=== PATIENT | male | born 1960 | race Caucasian/White ===

== ENCOUNTER → 2018-06-04 | Day surgery (SDC) | payer OTHER ==
--- NOTE | 2018-06-05 15:12 | PATH ---
Cytology Non-Gynecological Report Patient Name: ALEKSEY GUTIÉRREZ [facility]. Rec. #: [id number] /Age/Gender: 1960 (Age: 57) / M Account: [id number] Location: RADIOLOGY INTER Taken: 06/04/2018 Received: 06/04/2018 Reported: 06/05/2018 Physicians: Dianelys Conteh M.D. Specimen(s) Received LEFT LOBE THYROID FNA Clinical History Left thyroid nodule, 4.28 x 2.57 x 2.96 cm Final Diagnosis THYROID, LEFT, FINE NEEDLE ASPIRATION: SATISFACTORY FOR EVALUATION. BETHESDA CLASS II: BENIGN. CYTOLOGIC FINDINGS ARE CONSISTENT WITH A BENIGN FOLLICULAR NODULE WITH POST-HEMORRHAGIC CHANGE. FOLLICULAR CELLS WITH FOCAL REACTIVE CHANGES IN A BACKGROUND OF ABUNDANT THIN COLLOID AND HEMOSIDERIN-LADEN MACROPHAGES. Electronically Signed Citlali Nix M.D. Gross Description Received are eight direct smears, four of which are air-dried and Diff-Quik stained, and four of which are alcohol fixed and Pap stained. Also received is 20 ml of bloody formalin from which one cellblock is prepared.
== END | disposition home or self-care (01) ==
LOC: JRADIR 08:49
PROVIDERS: ATTEND Family Medicine
PROC: 0G9G3ZX Drainage of Left Thyroid Gland Lobe, Percutaneous Approach, Diagnostic (ICD-10-PCS; principal; 2018-06-04)
DX: E04.1 Nontoxic single thyroid nodule (principal)
CPT/HCPCS: 76942; 88173; 88305-TC

== ENCOUNTER 2018-09-21 16:18 | Inpatient (IN) | payer OTHER ==
--- NOTE | 2018-09-21 16:36 | PDOC ---
Rapid Medical Evaluation Chief Complaint: Edema Time Seen by Provider: 09/21/18 16:31 Medical Evaluation: Allergies Allergy/AdvReac Type Severity Reaction Status Date / Time No Known Allergies Allergy Verified 04/30/18 10:25 Vital Signs Temp Pulse Resp BP Pulse Ox 98.3 F 96 H 16 128/69 100 09/21/18 16:27 09/21/18 16:27 09/21/18 16:27 09/21/18 16:27 09/21/18 16:27 09/21/18 16:31 I have performed a brief in-person evaluation of this patient. The patient presents with a chief complaint of: right leg swelling, edema and pain x 3 days. Denies injury of fall Pertinent physical exam findings: NAD unlabored breathing right lower extremity erythematous and pitting edema I have ordered the following: ultrasound The patient will proceed to the ED for further evaluation. Discharge Disposition - Diagnosis Leg pain - Discharge Dispostion Condition at time of disposition: Stable - Referrals - Patient Instructions - Post Discharge Activity
[2018-09-21 19:59] LABS: BASO % 0.9 % (0-2.0); EOS % 1.4 % (0-4.5); HEMATOCRIT 38.4 % (35.4-49); HEMOGLOBIN 13.7 GM/dL (11.7-16.9); LYMPH % 22.7 % (8-40); MCHC 35.6 g/dl (32.0-35.9); MEAN CELL VOLUME 84.4 fl (80-96); MONO % 9.6 % (3.8-10.2); NEUT % 65.4 % (42.8-82.8); PLATELET COUNT 259 K/MM3 (134-434); RBC 4.55 M/mm3 (4.00-5.60); WHITE BLOOD COUNT 10.5 K/mm3 (4.0-10.0)
--- NOTE | 2018-09-21 20:26 | PDOC ---
*Physical Exam - Vital Signs Last Vital Signs Temp Pulse Resp BP Pulse Ox 98.3 F 96 H 16 128/69 100 09/21/18 16:27 09/21/18 16:27 09/21/18 16:27 09/21/18 16:27 09/21/18 16:27 ED Treatment Course - LABORATORY CBC & Chemistry Diagram: 09/21/18 19:41 09/21/18 19:41 - ADDITIONAL ORDERS Additional order review: 09/21/18 19:41 RBC 4.55 MCV 84.4 MCHC 35.6 RDW 14.0 MPV 8.0 Neutrophils % 65.4 Lymphocytes % 22.7 Monocytes % 9.6 Eosinophils % 1.4 Basophils % 0.9 Medical Decision Making - Medical Decision Making 09/21/18 20:25 Patient seen by the advanced practice provider under my direct supervision. Ancillary testing reviewed as necessary. I agree with plan as outlined by the advanced practice provider. *DC/Admit/Observation/Transfer Diagnosis at time of Disposition: Leg pain - Discharge Dispostion Condition at time of disposition: Stable - Referrals Referrals: Iram Borjas MD [Primary Care Provider] - - Patient Instructions - Post Discharge Activity
[2018-09-21 20:29] LABS: ALBUMIN 3.8 g/dl (3.4-5.0); ALK PHOS 111 U/L (45-117); ANION GAP 9 MMOL/L (8-16); BILIRUBIN,TOTAL 0.4 mg/dL (0.2-1); BLOOD UREA NITROGEN 18 mg/dL (7-18); CALCIUM 8.9 mg/dL (8.5-10.1); CHLORIDE 103 mmol/L (98-107); CO2 25 mmol/L (21-32); GLUCOSE,RANDOM 100 mg/dL (74-106); SGOT/AST 24 U/L (15-37); SGPT/ALT 22 U/L (13-61); SODIUM 137 mmol/L (136-145); TOT PROT 7.3 g/dl (6.4-8.2)
[2018-09-21] MEDS ORDERED: VANCOMYCIN 1 GM in D5W (PRE-DOCKED) 1,000 MG/250 ML IVPB ONE (20:48)
[2018-09-21] MEDS ORDERED: PIPERACILLIN/TAZOBACTAM 4.5 GM VIAL IVPB ONE (20:48)
--- NOTE | 2018-09-21 20:49 | PDOC ---
History of Present Illness - General Chief Complaint: Edema Stated Complaint: RIGHT LEG REDNESS Time Seen by Provider: 09/21/18 16:31 History Source: Patient - History of Present Illness Initial Comments: 09/21/18 21:17 57-year-old male complaining of right lower extremity edema, right calf pain with increased redness for the last 2 days. Patient reports that he's been having difficulty walking since swelling started. Denies fevers/chills denies shortness of breath, chest pain, dizziness, diaphoresis, nausea, vomiting, abdominal pain. Patient has a past medical history of hypertension, , gout, hypercholesterolemia Past History - Past Medical History Allergies/Adverse Reactions: Allergies Allergy/AdvReac Type Severity Reaction Status Date / Time No Known Allergies Allergy Verified 04/30/18 10:25 Asthma: Yes Cardiac Disorders: No COPD: No HTN: Yes Hypercholesterolemia: Yes Other medical history: gout,ca.prostrate - Surgical History Cholecystectomy: No - Immunization History Immunization Up to Date: No - Suicide/Smoking/Psychosocial Hx Smoking History: Never smoked Have you smoked in the past 12 months: No Information on smoking cessation initiated: No Hx Alcohol Use: No Drug/Substance Use Hx: No Review of Systems - Review of Systems Able to Perform ROS?: Yes Is the patient limited Swazi proficient: No Constitutional: No: Symptoms Reported, See HPI, Chills, Diaphoresis, Fever, Loss of Appetite, Malaise, Night Sweats, Weakness, Weight Stable, Unintentional Wgt. Loss, Unexplained wgt Loss, Other Integumentary: Yes: Erythema (and edema), Other (right calf pain) *Physical Exam - Vital Signs Last Vital Signs Temp Pulse Resp BP Pulse Ox 98.3 F 96 H 16 128/69 100 09/21/18 16:27 09/21/18 16:27 09/21/18 16:27 09/21/18 16:27 09/21/18 16:27 - Physical Exam General Appearance: Yes: Appropriately Dressed Respiratory/Chest: positive: Lungs Clear, Normal Breath Sounds Cardiovascular: positive: Regular Rhythm, Regular Rate Gastrointestinal/Abdominal: positive: Normal Bowel Sounds Extremity: positive: Swelling, Erythema (no streaking, + pedal pulse bilaterally , + calf pain) Integumentary: positive: Normal Color, Dry, Warm Neurologic: positive: Fully Oriented, Alert, Normal Mood/Affect Moderate Sedation - Procedure Monitoring Vital Signs: Procedure Monitoring Vital Signs Temperature 98.3 F 09/21/18 16:27 Pulse Rate 96 H 09/21/18 16:27 Respiratory Rate 16 09/21/18 16:27 Blood Pressure 128/69 09/21/18 16:27 O2 Sat by Pulse Oximetry (%) 100 09/21/18 16:27 ED Treatment Course - LABORATORY CBC & Chemistry Diagram: 09/21/18 19:41 09/21/18 19:41 - ADDITIONAL ORDERS Additional order review: Laboratory Results 09/21/18 19:41 Sodium 137 Potassium 4.0 Chloride 103 Carbon Dioxide 25 Anion Gap 9 BUN 18 Creatinine 1.0 Creat Clearance w eGFR > 60 Random Glucose 100 Calcium 8.9 Total Bilirubin 0.4 AST 24 ALT 22 Alkaline Phosphatase 111 Total Protein 7.3 Albumin 3.8 09/21/18 19:41 RBC 4.55 MCV 84.4 MCHC 35.6 RDW 14.0 MPV 8.0 Neutrophils % 65.4 Lymphocytes % 22.7 Monocytes % 9.6 Eosinophils % 1.4 Basophils % 0.9 Progress Note - Progress Note Progress Note: A: cellulitis; right lower extremity edema P: cbc cmp crp bnp chest xray ekg IV antibiotics admit Medical Decision Making - Medical Decision Making 09/21/18 21:[address] sands. recommends IV antibiotics and admission/ 09/21/18 21:46 i signed out to domenic ARGUETA hospitalist [employer] covering Dr. sands for admission. *DC/Admit/Observation/Transfer Diagnosis at time of Disposition: Cellulitis and abscess of right lower extremity, Right calf pain, Edema leg Leg pain Qualifiers: Laterality: right Qualified Code(s): M79.604 - Pain in right leg - Discharge Dispostion Condition at time of disposition: Stable Decision to Admit order: Yes - Referrals Referrals: Iram Sands MD [Primary Care Provider] - - Patient Instructions - Post Discharge Activity
[2018-09-21] MEDS ORDERED: PIPERACILLIN/TAZOB 4.5 GM 4.5 GM/100 ML BAG IVPB ONE (21:16)
[2018-09-21] MEDS ORDERED: VANCOMYCIN 1 GRAM (PRE-DOCKED) 1,000 MG/250 ML BAG IVPB ONE (21:17)
[2018-09-21 22:18] LABS: URIC ACID 7.2 mg/dL (2.6-7.2)
[2018-09-21 22:21] LABS: MAGNESIUM 1.6 mg/dL (1.8-2.4); N-TERMINAL BNP 26.9 pg/ml (5-125)
--- NOTE | 2018-09-21 22:28 | HP ---
CHIEF COMPLAINT: Here with right lower extremity redness to lower portion of right lower extremity which started today with pain and swelling PCP:Dr. Antoine HISTORY OF PRESENT ILLNESS: This is a 57 year old male with history of hypertension, hyperlipidemia, BPH, gout and laparscopic kidney stone removal who presents with right lower extremity redness to lower portion of right lower extremity with oozing of minimal blood which started today with pain and swelling. He denies trauma. He has bilateral lower extremity edema. US of lower extremities showed no evidence of DVT. In the ER he was medicated with IV Zosyn and Vancomycin. He denied fever, chest pain, or shortness of breath. He is hemodynamically stable and afebrile. He is being admitted to observation for possible cellulitis and further evaluation and treatment. Recent Travel:Denies PAST MEDICAL HISTORY: hypertension, hyperlipidemia, BPH, gout PAST SURGICAL HISTORY: laparscopic kidney stone removal Social History: Smoking:Denies Alcohol:Denies Drugs: Denies Family History:noncontributory Allergies No Known Allergies Allergy (Verified 04/30/18 10:25) HOME MEDICATIONS: REVIEW OF SYSTEMS CONSTITUTIONAL: Absent: fever, chills, diaphoresis, generalized weakness, malaise, loss of appetite, weight change HEENT: Absent: rhinorrhea, nasal congestion, throat pain, throat swelling, difficulty swallowing, mouth swelling, ear pain, eye pain, visual changes CARDIOVASCULAR: Absent: chest pain, syncope, palpitations, irregular heart rate, lightheadedness , peripheral edema RESPIRATORY: Absent: cough, shortness of breath, dyspnea with exertion, orthopnea, wheezing, stridor, hemoptysis GASTROINTESTINAL: Absent: abdominal pain, abdominal distension, nausea, vomiting, diarrhea, constipation, melena, hematochezia GENITOURINARY: Absent: dysuria, frequency, urgency, hesitancy, hematuria, flank pain, genital pain MUSCULOSKELETAL: Absent: myalgia, arthralgia, joint swelling, back pain, neck pain SKIN: Absent: rash, itching, pallor, redness and swelling to right lower extremity with a small area of very minimal blood oozing from like an abrasion to right lower part of lower extremity, very minimal redness to left lower extremity and swelling present HEMATOLOGIC/IMMUNOLOGIC: Absent: easy bleeding, easy bruising, lymphadenopathy, frequent infections ENDOCRINE: Absent: unexplained weight gain, unexplained weight loss, heat intolerance, cold intolerance NEUROLOGIC: Absent: headache, focal weakness or paresthesias, dizziness, unsteady gait, seizure, mental status changes, bladder or bowel incontinence PSYCHIATRIC: Absent: anxiety, depression, suicidal or homicidal ideation, hallucinations. PHYSICAL EXAMINATION Vital Signs - 24 hr 09/21/18 09/21/18 16:27 22:02 Temperature 98.3 F Pulse Rate 96 H Respiratory 16 Rate Blood Pressure 128/69 O2 Sat by Pulse 100 99 Oximetry (%) GENERAL: awake, alert, and fully oriented, in no acute distress HEAD: normal with no signs of trauma EYES: pupils equal, round and reactive to light EARS, NOSE, THROAT: ears normal, nares patent, oropharynx clear without exudates NECK: normal range of motion, supple LUNGS: breath sounds equal, clear to auscultation bilaterally. No wheezes, and no crackles. No accessory muscle use. HEART: regular rate and rhythm, normal S1 and S2 ABDOMEN: soft, nontender, not distended, normoactive bowel sounds, no guarding, no rebound, no masses. MUSCULOSKELETAL: normal range of motion at all joints.. UPPER EXTREMITIES: 2+ pulses, warm, well-perfused. No cyanosis. No clubbing. No peripheral edema. LOWER EXTREMITIES: 2+ pulses, warm, well-perfused. 1+ pedal edema noted bilaterally, redness to RLE>LLE NEUROLOGICAL: normal speech. Normal gait. PSYCHIATRIC: cooperative. good eye contact. appropriate mood and affect. SKIN: warm, dry, normal turgor, redness to right lower extremity with swelling Laboratory Results - last 24 hr 09/21/18 09/21/18 19:41 19:41 WBC 10.5 H RBC 4.55 Hgb 13.7 Hct 38.4 MCV 84.4 MCH 30.0 MCHC 35.6 RDW 14.0 Plt Count 259 MPV 8.0 Absolute Neuts (auto) 6.8 Neutrophils % 65.4 Lymphocytes % 22.7 Monocytes % 9.6 Eosinophils % 1.4 Basophils % 0.9 Nucleated RBC % 0 Sodium 137 Potassium 4.0 Chloride 103 Carbon Dioxide 25 Anion Gap 9 BUN 18 Creatinine 1.0 Creat Clearance w eGFR > 60 Random Glucose 100 Calcium 8.9 Total Bilirubin 0.4 AST 24 ALT 22 Alkaline Phosphatase 111 Total Protein 7.3 Albumin 3.8 ASSESSMENT/PLAN: Mr. Shine is a 57 year old male with history of hypertension, hyperlipidemia, BPH, gout and laparscopic kidney stone removal who presents with right lower extremity redness to lower portion of right lower extremity with oozing of minimal blood which started today with pain and bilateral lower extremity edema. Venous US of bilateral lower extremities showed no evidence of DVT. In the ER he was medicated with IV Zosyn and Vancomycin. He denied fever, chest pain, or shortness of breath. He is hemodynamically stable and afebrile. He is being admitted to observation for possible cellulitis and further evaluation and treatment. Right lower extremity erythema/ ?Cellulitus Patient received one dosgae of IV zosyn and vancomycin. WBC is elevated at 10.5 /differnetial normal. Patient remains afebrile. Venous doppler is negative for DVT in right leg. Arterial duplex scan is pending. ID consulted- Dr. Martinez. Continue with IV clindamycin. Pending blood cultures, lactic acid. ESR and uric acid are normal. C-reactive protein is elevated at 1.2. Bilateral Lower Extremity Swelling Patient does not appear to be fluid overloaded(no JVD, lungs clear). He denies dyspnea, orthopnea. EKG with a normal sinus rhythm, no acute ischemia. BNP is normal. Hypertension Controlled. Continue HCTZ and benazepril. Hyperlipidemia Continue statin therapy. BPH Continue tamulosin(unclear also review of medications on another alpha pieter alfuzosin which is on hold for now) FEN Regular diet, monitor electrolyes. DVT prophylaxsis SCD's Visit type - Emergency Visit Emergency Visit: Yes ED Registration Date: 09/21/18 Care time: The patient presented to the Emergency Department on the above date and was hospitalized for further evaluation of their emergent condition. - New Patient This patient is new to me today: Yes Date on this admission: 09/22/18 - Critical Care Critical Care patient: No
[2018-09-21] MEDS ORDERED: HEPARIN NA (PORCINE) 5,000 UNITS/ML 1ML VIAL ONE (23:02)
[2018-09-21] MEDS ORDERED: CLINDAMYCIN 600MG PREMIX IVPB 600 MG/50 ML BAG IVPB ONE (23:03)
[2018-09-22] MEDS: LACTATED RINGERS SOLUTION 1,000 ML IV SCH ×3 (00:26→22:21)
[2018-09-22] MEDS: CLINDAMYCIN 600MG PREMIX IVPB 600 MG/50 ML BAG IVPB SCH ×4 (00:26→16:18)
[2018-09-22] MEDS: HEPARIN NA (PORCINE) 5,000 UNITS/ML 1ML VIAL SQ SCH ×3 (00:26→22:21)
[2018-09-22] MEDS ORDERED: CLINDAMYCIN 600MG PREMIX IVPB 600 MG/50 ML BAG IVPB ONE ×2 (03:01→09:08)
[2018-09-22] MEDS ORDERED: ALBUTEROL SO4 8 GM HFA INHALER IH PRN (04:45)
[2018-09-22 07:23] LABS: HEMATOCRIT 38.8 % (35.4-49); HEMOGLOBIN 13.5 GM/dL (11.7-16.9); MCH 29.5 pg (25.7-33.7); MCHC 34.7 g/dl (32.0-35.9); MEAN CELL VOLUME 85.1 fl (80-96); MEAN PLT VOLUME 8.4 fl (7.5-11.1); PLATELET COUNT 262 K/MM3 (134-434); RBC 4.56 M/mm3 (4.00-5.60); WHITE BLOOD COUNT 7.4 K/mm3 (4.0-10.0)
[2018-09-22 08:01] LABS: ANION GAP 8 MMOL/L (8-16); BLOOD UREA NITROGEN 17 mg/dL (7-18); CALCIUM 8.4 mg/dL (8.5-10.1); CHLORIDE 103 mmol/L (98-107); CO2 25 mmol/L (21-32); GLUCOSE,RANDOM 101 mg/dL (74-106); POTASSIUM 4.1 mmol/L (3.5-5.1); SODIUM 136 mmol/L (136-145)
[2018-09-22] MEDS: TAMSULOSIN HCL 0.4 MG CAP PO SCH (09:05)
[2018-09-22] MEDS ORDERED: TAMSULOSIN HCL 0.4 MG CAP ONE (09:07)
[2018-09-22] MEDS: ASPIRIN 81 MG CHEWABLE TABLETS PO SCH (09:45)
[2018-09-22] MEDS: LISINOPRIL 20 MG TABLET (FP) PO SCH (09:45)
[2018-09-22] MEDS: CHOLECALCIFEROL (VITAMIN D3) 1,000 UNIT TABLET (FP) PO SCH (09:45)
[2018-09-22] MEDS: HYDROCHLOROTHIAZIDE 25 MG TABLET (FP) PO SCH (09:45)
[2018-09-22] MEDS: ALLOPURINOL 100 MG TABLET (FP) PO SCH (09:45)
[2018-09-22] MEDS ORDERED: PATIENT'S OWN MEDICATION (NON-FORMULARY) (Alfuzosin Hcl [Alfuzosin Hcl Er] 10 MG) PO SCH (10:00)
--- NOTE | 2018-09-22 10:48 | EKG ---
Test Reason : Blood Pressure : / mmHG Vent. Rate : 078 BPM Atrial Rate : 078 BPM P-R Int : 132 ms QRS Dur : 100 ms QT Int : 374 ms P-R-T Axes : 044 057 012 degrees QTc Int : 426 ms POOR DATA QUALITY, INTERPRETATION MAY BE ADVERSELY AFFECTED NORMAL SINUS RHYTHM NORMAL ECG NO PREVIOUS ECGS AVAILABLE Confirmed by Hugh Newby MD ([id number]) on 09/22/2018 10:48:34 AM Referred By: Confirmed By:Hugh Newby MD
[2018-09-22] MEDS ORDERED: VANCOMYCIN 1 GRAM (PRE-DOCKED) 1,000 MG/250 ML BAG IVPB ONE (13:48)
[2018-09-22] MEDS ORDERED: MAGNESIUM SULF 50% (8.12 MEQ/2 ML-1 GM VIAL) IVPB ONE (13:49)
--- NOTE | 2018-09-22 13:49 | PN ---
Progress Note, Physician Chief Complaint: patient admitted for right leg swelling and erythema - Current Medication List Current Medications: Active Medications Albuterol Sulfate (Ventolin Hfa Inhaler -) 2 puff IH Q6H PRN PRN Reason: SHORTNESS OF BREATH Allopurinol (Zyloprim -) 100 mg PO DAILY [facility] Last Admin: 09/22/18 09:45 Dose: 100 mg Aspirin (Asa -) 81 mg PO DAILY [facility] Last Admin: 09/22/18 09:45 Dose: 81 mg Atorvastatin Calcium (Lipitor -) 40 mg PO [facility] Cholecalciferol (Vitamin D3 -) 5,000 unit PO DAILY [facility] Last Admin: 09/22/18 09:45 Dose: 5,000 unit Heparin Sodium (Porcine) (Heparin -) 5,000 unit SQ TID [facility] Last Admin: 09/22/18 05:00 Dose: 5,000 unit Hydrochlorothiazide (Hctz -) 25 mg PO DAILY [facility] Last Admin: 09/22/18 09:45 Dose: 25 mg Clindamycin Phosphate (Cleocin 600 Mg Premix Ivpb -) 600 mg in 50 mls @ 100 mls /hr IVPB Q6H-IV [facility]; Protocol Last Admin: 09/22/18 09:05 Dose: 100 mls/hr Lactated Ringer's (Lactated Ringers Solution) 1,000 mls @ 42 mls/hr IV ASDIR [facility] Last Admin: 09/22/18 00:26 Dose: 42 mls/hr Lisinopril (Prinivil) 20 mg PO DAILY [facility] Last Admin: 09/22/18 09:45 Dose: 20 mg Tamsulosin HCl (Flomax -) 0.4 mg PO DAILY@0830 [facility] Last Admin: 09/22/18 09:05 Dose: 0.4 mg - Objective Vital Signs: Vital Signs Temperature 99 F 09/22/18 09:00 Pulse Rate 76 09/22/18 09:00 Respiratory Rate 20 09/22/18 09:00 Blood Pressure 126/68 09/22/18 09:00 O2 Sat by Pulse Oximetry (%) 95 09/22/18 09:00 Constitutional: Yes: Calm Cardiovascular: Yes: Regular Rate and Rhythm, S1, S2 Respiratory: Yes: CTA Bilaterally Musculoskeletal: Yes: Other (right leg swelling) Extremities: Yes: Erythema (of right leg) Labs: CBC, BMP 09/22/18 05:30 09/22/18 06:30 Problem List - Problems (1) Cellulitis and abscess of right lower extremity Assessment/Plan: iv abx- on dose vancomycin ordered vanco rough for AM iD consult Code(s): L03.115 - CELLULITIS OF RIGHT LOWER LIMB; L02.415 - CUTANEOUS ABSCESS OF RIGHT LOWER LIMB (2) Edema leg Assessment/Plan: vascular consult placed arterial duples noted for abnormal flow in arteries Code(s): R60.0 - LOCALIZED EDEMA (3) Hypomagnesemia Assessment/Plan: iv magnesium Code(s): E83.42 - HYPOMAGNESEMIA
--- NOTE | 2018-09-22 14:24 | CONSULT ---
- Consultation REQUESTING PROVIDER: CONSULT REQUEST: We have been asked to surgically evaluate this patient for RLE swelling PCP:Iram Borjas HISTORY OF PRESENT ILLNESS: 57yo M complaining of RLE swelling x 4 days. Pt states that the swelling started after he was walking and felt a "pop" in his calf. Pt denies previous history of swelling, DVT, vascular issues. Pt denies any numbness or weakness in his foot. Denies fever, chills. Pt denies any trauma or falls. States having a lot of itching which is reason for scratches on front of leg. Pt had Venous duplex that was negative for DVT. PMHx: Gout, BPH, HTN, HLD Home Medications Medication Instructions Recorded Albuterol Sulfate [Proair Hfa] 8.5 gm IH PRN 09/22/18 Alfuzosin HCl [Alfuzosin HCl ER] 10 mg PO DAILY 09/22/18 Allopurinol [Zyloprim -] 100 mg PO DAILY 09/22/18 Aspirin [ASA -] 81 mg PO DAILY 09/22/18 Atorvastatin Ca [Lipitor] 40 mg PO HS 09/22/18 Benazepril/Hydrochlorothiazide 1 each PO DAILY 09/22/18 [Benazepril-Hctz 20-25 mg Tab] Cholecalciferol (Vitamin D3) 5,000 unit PO DAILY 09/22/18 [Vitamin D3] Tamsulosin HCl [Flomax] 0.4 mg PO DAILY 09/22/18 Allergies Allergy/AdvReac Type Severity Reaction Status Date / Time No Known Allergies Allergy Verified 04/30/18 10:25 REVIEW OF SYSTEMS: CONSTITUTIONAL: Absent: fever, chills, diaphoresis, generalized weakness, malaise, loss of appetite, weight change CARDIOVASCULAR: Absent: chest pain, syncope, palpitations, irregular heart rate, lightheadedness RESPIRATORY: Absent: cough, shortness of breath, dyspnea with exertion MUSCULOSKELETAL: Absent: myalgia, arthralgia, joint swelling, back pain, neck pain SKIN: Absent: rash, itching, pallor HEMATOLOGIC/IMMUNOLOGIC: Absent: easy bleeding, easy bruising NEUROLOGIC: Absent: headache, focal weakness, paresthesias, PHYSICAL EXAM: GENERAL: Awake, alert, and fully oriented, in no acute distress. HEAD: Normal with no signs of trauma. EYES: PERRL, sclera anicteric, conjunctiva clear. NECK: Normal ROM LUNGS: Clear to auscultation bilat anteriorly. No wheezes, and no crackles. No accessory muscle use. HEART: Regular rate and rhythm. No murmurs MUSCULOSKELETAL: Normal ROM at all joints. No bony deformities or tenderness. LOWER EXTREMITIES: 2+ pulses, warm, well-perfused. No calf tenderness. RLE shows +1 edema, some redness on anterior soni NEUROLOGICAL: Normal speech, gait not observed. PSYCH: Cooperative. Good eye contact. Appropriate mood and affect. SKIN: Warm, dry, normal turgor, no rashes or lesions noted. Vital Signs Temperature 99 F 09/22/18 09:00 Pulse Rate 76 09/22/18 09:00 Respiratory Rate 20 09/22/18 09:00 Blood Pressure 126/68 09/22/18 09:00 O2 Sat by Pulse Oximetry (%) 95 09/22/18 09:00 Lab Results WBC 7.4 K/mm3 (4.0-10.0) 09/22/18 05:30 RBC 4.56 M/mm3 (4.00-5.60) 09/22/18 05:30 Hgb 13.5 GM/dL (11.7-16.9) 09/22/18 05:30 Hct 38.8 % (35.4-49) 09/22/18 05:30 MCV 85.1 fl (80-96) 09/22/18 05:30 MCHC 34.7 g/dl (32.0-35.9) 09/22/18 05:30 RDW 14.0 % (11.9-15.9) 09/22/18 05:30 Plt Count 262 K/MM3 (134-434) 09/22/18 05:30 Sodium 136 mmol/L (136-145) 09/22/18 06:30 Potassium 4.1 mmol/L (3.5-5.1) 09/22/18 06:30 Chloride 103 mmol/L (98-107) 09/22/18 06:30 Carbon Dioxide 25 mmol/L (21-32) 09/22/18 06:30 Anion Gap 8 MMOL/L (8-16) 09/22/18 06:30 BUN 17 mg/dL (7-18) 09/22/18 06:30 Creatinine 1.0 mg/dL (0.55-1.3) 09/22/18 06:30 Random Glucose 101 mg/dL (74-106) 09/22/18 06:30 Calcium 8.4 mg/dL (8.5-10.1) L 09/22/18 06:30 Problem List - Problems (1) Edema leg Assessment/Plan: Plan -from history would consider Laughlin cyst bursting as source of pain swelling, can do outpatient work up -Pt has no sign of infection on leg, would not recommend IV abx -great pulses despite inconclusive results of arterial duplex, no signs of arterial issues -recommend elevate leg, -no surgical intervention required at this time. Code(s): R60.0 - LOCALIZED EDEMA
--- NOTE | 2018-09-22 15:27 | PN ---
Progress Note (short form) - Note Progress Note: ID consult dictated 57 yo man with RLE swelling and pain, no fevers not sure this is cellulitis suggest xray of RLE consider ortho evaluation nothing to suggest MRSA can switch to ancef with plans to transition to po keflex Problem List - Problems (1) Right calf pain Code(s): M79.661 - PAIN IN RIGHT LOWER LEG (2) Cellulitis Code(s): L03.90 - CELLULITIS, UNSPECIFIED
[2018-09-22 18:42] VITALS: BMI 45.3
[2018-09-22] MEDS: CEFAZOLIN 2 GM/D5W 2 GM/50 ML ML IVPB SCH (19:36)
--- NOTE | 2018-09-22 19:37 | CONS ---
DATE OF CONSULTATION: DATE OF DICTATION: 09/22/2018 INFECTIOUS DISEASE CONSULTATION REQUESTING PHYSICIAN: Iram Borjas M.D. CONSULTING PHYSICIAN: Josh Foote M.D. HISTORY OF PRESENT ILLNESS: This is a 57-year-old man who presents to the emergency room with right lower extremity swelling and pain. He notes that several days ago he developed discomfort and tightness in his right calf. Yesterday he noted that he had patchy erythema and swelling of his ankle, and he presented to the ER. He denies any fevers. He denies any prior such episode. He denies any trauma. He got vancomycin and Zosyn in the emergency room, and asked to evaluate him. He had a duplex done that was negative for DVT. PAST MEDICAL HISTORY: Notable for hypertension, hyperlipidemia, BPH and gout. SURGICAL HISTORY: Notable for laparoscopic kidney stone removal. He works in a factory. There is no history of any cigarette, alcohol or substance use. FAMILY HISTORY: Noncontributory. ALLERGIES: No known drug allergies. MEDICATION: Medications at home include vitamin D, benazepril, hydrochlorothiazide, , albuterol, aspirin, Zyloprim, Flomax, and Lipitor. He has a history of gout as well. SOCIAL HISTORY: He has no pets. REVIEW OF SYSTEMS: He states he scratches his legs sometimes. He has no fever or shortness of breath. PHYSICAL EXAMINATION: VITAL SIGNS: Temperature 99, pulse 76, blood pressure 126/68. He has had no fevers since admission. Respiratory rate is 20. Saturating 95% on room air. HEENT: Normocephalic. Eyes are anicteric. NECK: Supple. LUNGS: Clear to auscultation. HEART: Regular rate and rhythm. ABDOMEN: Soft, nontender. He has no inguinal pain or adenopathy. EXTREMITIES: The right leg, the knee has full range of motion, is without swelling. He has tenderness on palpation of the right calf. He has diffuse swelling of the right ankle. Pulses are 2+ bilaterally. He has patchy erythema of the right lower leg. He has some evidence of some dry scratch castro and scabs on his right pretibial area. LABORATORY: His white count on admission was 10.5, today is 7.4, hemoglobin 13.5, platelets 262. Chemistries and LFTs are normal. Sedimentation rate is 17 with CRP of 1.2. Blood cultures are pending. IMPRESSION: In summary, this is a 57-year-old man who has right lower extremity swelling and pain. I am not sure this is cellulitis. He has patchy erythema with significant ankle swelling. Would suggest x-ray of the right ankle, consider orthopedics evaluation. If there is nothing to suggest methicillin-resistant Staphylococcus aureus, if there is no antibiotics, would switch him to Ancef with plans to transition to oral Keflex. Further recommendations to follow. JOSH FOOTE M.D. [id number]
[2018-09-22 20:29] LABS: URINE APPEARANCE CLEAR; URINE BILIRUBIN NEGATIVE (<2.0 mg/dL); URINE COLOR STRAW; URINE GLUCOSE (UA) NEGATIVE (NEGATIVE); URINE KETONE NEGATIVE (NEGATIVE); URINE LEUK ESTERASE NEGATIVE (NEGATIVE); URINE NITRITE NEGATIVE (NEGATIVE); URINE PROTEIN NEGATIVE (NEGATIVE); URINE UROBILINOGEN NEGATIVE mg/dL (0.2-1.0)
[2018-09-22] MEDS ORDERED: ATORVASTATIN CA 40 MG TABLET (FP) PO SCH (22:00)
[2018-09-23] MEDS: CEFAZOLIN 2 GM/D5W 2 GM/50 ML ML IVPB SCH ×2 (01:59→10:55)
[2018-09-23 07:48] LABS: BASO % 0.7 % (0-2.0); EOS % 2.1 % (0-4.5); HEMATOCRIT 41.1 % (35.4-49); HEMOGLOBIN 14.3 GM/dL (11.7-16.9); LYMPH % 21.9 % (8-40); MCH 29.7 pg (25.7-33.7); MCHC 34.9 g/dl (32.0-35.9); MEAN CELL VOLUME 85.2 fl (80-96); MEAN PLT VOLUME 8.3 fl (7.5-11.1); MONO % 8.5 % (3.8-10.2); NEUT % 66.8 % (42.8-82.8); PLATELET COUNT 269 K/MM3 (134-434); RBC 4.83 M/mm3 (4.00-5.60); RDW 14.3 % (11.9-15.9); WHITE BLOOD COUNT 8.3 K/mm3 (4.0-10.0)
[2018-09-23 08:05] LABS: ALBUMIN 3.4 g/dl (3.4-5.0); ALK PHOS 103 U/L (45-117); ANION GAP 7 MMOL/L (8-16); BILIRUBIN,TOTAL 0.4 mg/dL (0.2-1); BLOOD UREA NITROGEN 15 mg/dL (7-18); CALCIUM 8.8 mg/dL (8.5-10.1); CHLORIDE 104 mmol/L (98-107); CO2 26 mmol/L (21-32); CREATININE 0.9 mg/dL (0.55-1.3); GLUCOSE,RANDOM 100 mg/dL (74-106); MAGNESIUM 2.4 mg/dL (1.8-2.4); POTASSIUM 4.1 mmol/L (3.5-5.1); SGOT/AST 18 U/L (15-37); SGPT/ALT 20 U/L (13-61); SODIUM 137 mmol/L (136-145); TOT PROT 6.7 g/dl (6.4-8.2)
[2018-09-23] MEDS: ASPIRIN 81 MG CHEWABLE TABLETS PO SCH (10:55)
[2018-09-23] MEDS: TAMSULOSIN HCL 0.4 MG CAP PO SCH (10:55)
[2018-09-23] MEDS: HYDROCHLOROTHIAZIDE 25 MG TABLET (FP) PO SCH (10:55)
[2018-09-23] MEDS: LISINOPRIL 20 MG TABLET (FP) PO SCH (10:55)
[2018-09-23] MEDS: ALLOPURINOL 100 MG TABLET (FP) PO SCH (10:55)
[2018-09-23] MEDS: CHOLECALCIFEROL (VITAMIN D3) 1,000 UNIT TABLET (FP) PO SCH (10:56)
[2018-09-23] MEDS: HEPARIN NA (PORCINE) 5,000 UNITS/ML 1ML VIAL SQ SCH (10:56)
--- NOTE | 2018-09-23 11:23 | PN ---
Progress Note, Physician Chief Complaint: right calf pain RLE cellulitis History of Present Illness: NAD in bed self ambulatory wants to go home - Current Medication List Current Medications: Active Medications Albuterol Sulfate (Ventolin Hfa Inhaler -) 2 puff IH Q6H PRN PRN Reason: SHORTNESS OF BREATH Allopurinol (Zyloprim -) 100 mg PO DAILY [facility] Last Admin: 09/23/18 10:55 Dose: 100 mg Aspirin (Asa -) 81 mg PO DAILY [facility] Last Admin: 09/23/18 10:55 Dose: 81 mg Atorvastatin Calcium (Lipitor -) 40 mg PO HS [facility] Last Admin: 09/22/18 22:21 Dose: 40 mg Cholecalciferol (Vitamin D3 -) 5,000 unit PO DAILY [facility] Last Admin: 09/23/18 10:56 Dose: 5,000 unit Heparin Sodium (Porcine) (Heparin -) 5,000 unit SQ BID [facility] Last Admin: 09/23/18 10:56 Dose: 5,000 unit Hydrochlorothiazide (Hctz -) 25 mg PO DAILY [facility] Last Admin: 09/23/18 10:55 Dose: 25 mg Lactated Ringer's (Lactated Ringers Solution) 1,000 mls @ 42 mls/hr IV ASDIR [facility] Last Admin: 09/22/18 22:21 Dose: Not Given Cefazolin Sodium/Dextrose (Ancef 2 Gm Premixed Ivpb -) 2 gm in 50 mls @ 100 mls /hr IVPB Q8H-IV [facility] Last Admin: 09/23/18 10:55 Dose: 100 mls/hr Lisinopril (Prinivil) 20 mg PO DAILY [facility] Last Admin: 09/23/18 10:55 Dose: 20 mg Tamsulosin HCl (Flomax -) 0.4 mg PO DAILY@0830 [facility] Last Admin: 09/23/18 10:55 Dose: 0.4 mg - Objective Vital Signs: Vital Signs Temperature 97.4 F L 09/23/18 06:00 Pulse Rate 70 09/23/18 06:00 Respiratory Rate 21 H 09/23/18 06:00 Blood Pressure 117/59 L 09/23/18 06:00 O2 Sat by Pulse Oximetry (%) 96 09/22/18 21:00 Constitutional: Yes: Well Nourished, No Distress, Calm Cardiovascular: Yes: Regular Rate and Rhythm Respiratory: Yes: Regular Gastrointestinal: Yes: WNL Genitourinary: Yes: WNL Musculoskeletal: Yes: WNL Extremities: Yes: WNL Edema: No Peripheral Pulses WNL: Yes Neurological: Yes: Alert, Oriented Psychiatric: Yes: Alert, Oriented Labs: CBC, BMP 09/23/18 06:50 09/23/18 06:50 Problem List - Problems (1) Cellulitis and abscess of right lower extremity Assessment/Plan: -Seen by ID -Received IV abx -cleared to be discharged home on cephalexin 500 mg po tid x 5 days -afebrile -no leukocytosis Code(s): L03.115 - CELLULITIS OF RIGHT LOWER LIMB; L02.415 - CUTANEOUS ABSCESS OF RIGHT LOWER LIMB Assessment/Plan see problem list
--- NOTE | 2018-09-23 14:19 | PN ---
Progress Note (short form) - Note Progress Note: foot continues to improve less pain Vital Signs Period Temp Pulse Resp BP Sys/Hood Pulse Ox Last 24 Hr 97.4 F-98.4 F 70-89 18-21 116-126/58-78 95-98 cor-rrr lungs clear abd soft,nt ext RLE minimal erythema, no warmth, less calf pain, less ankle swelling CBC, BMP 09/23/18 06:50 09/23/18 06:50 Microbiology 09/21/18 21:52 Blood - Peripheral Venous Blood Culture - Preliminary NO GROWTH OBTAINED AFTER 24 HOURS, INCUBATION TO CONTINUE FOR 4 DAYS. 09/21/18 21:52 Blood - Peripheral Venous Blood Culture - Preliminary NO GROWTH OBTAINED AFTER 24 HOURS, INCUBATION TO CONTINUE FOR 4 DAYS. Laboratory Tests 09/21/18 09/21/18 21:35 21:35 ESR 17 C-Reactive Protein 1.2 H a/p cellulitis RLE swelling both improving can switch to keflex 500 tid for 5 days when ready for discharge f/u PMD Problem List - Problems (1) Right calf pain Code(s): M79.661 - PAIN IN RIGHT LOWER LEG (2) Cellulitis Code(s): L03.90 - CELLULITIS, UNSPECIFIED
[2018-09-23 14:57] VITALS: BP 116/67; PULSE 80; TEMP 97.8
--- NOTE | 2018-09-23 16:07 | CONSULT ---
Consult Consult Specialty:: Rheumatology - History of Present Illness History of Present Illness: 57 year old male with history of hypertension, hyperlipidemia, BPH, gout and kidney stones, admitted with pain and swelling in the right calf. HPI the patient reports that 4 days ago e developed moderate pain I the right claf. One day later he developed swelling wit erythema and significant pain. He was admitted to the hospital and work-up revealed duplex ultrasound negative for DVT and no Bakers cyst. Arterial duplex ultrasound reported with abnormal flow with alternate between triphasic and monophasic flow., etiology to be determined. There was no occlusion or stenosis. Since admission the pain improved, however he still has edema of the right leg. The patient has a 25 year history of gouty arthritis. He reports he has about 5 episodes of gout per year involving 1st toe or wrist in either side and usually resolves spontaneously after 2 days. He is on Allopurinol 100 mg/d and at the present time he denies having acute arthritis. Laboratory work-up revealed ESR 17 and CRP 1.2 (N<0.3). Creatinine 0.9, LFT and urinalysis normal and uric acid 7.2. - History Source History Provided By: Patient - Past Medical History Cardio/Vascular: Yes: HTN, Hyperlipdemia Renal/: Yes: BPH, Renal Calculi Rheumatology: Yes: Gout - Alcohol/Substance Use Hx Alcohol Use: No - Smoking History Smoking history: Never smoked Have you smoked in the past 12 months: No Home Medications - Allergies Allergies/Adverse Reactions: Allergies Allergy/AdvReac Type Severity Reaction Status Date / Time No Known Allergies Allergy Verified 04/30/18 10:25 - Home Medications Home Medications: Ambulatory Orders Albuterol Sulfate [Proair Hfa] 8.5 gm IH PRN 09/22/18 Alfuzosin HCl [Alfuzosin HCl ER] 10 mg PO DAILY 09/22/18 Allopurinol [Zyloprim -] 100 mg PO DAILY 09/22/18 Aspirin [ASA -] 81 mg PO DAILY 09/22/18 Atorvastatin Ca [Lipitor] 40 mg PO HS 09/22/18 Benazepril/Hydrochlorothiazide [Benazepril-Hctz 20-25 mg Tab] 1 each PO DAILY Cholecalciferol (Vitamin D3) [Vitamin D3] 5,000 unit PO DAILY 09/22/18 Tamsulosin HCl [Flomax -] 0.4 mg PO DAILY 09/22/18 Cephalexin [Keflex] 500 mg PO BID #10 capsule 09/23/18 Cephalexin [Keflex] 500 mg PO TID #15 capsule 09/23/18 Review of Systems - Review of Systems Constitutional: reports: No Symptoms Eyes: reports: No Symptoms HENT: reports: No Symptoms Neck: reports: No Symptoms Cardiovascular: reports: No Symptoms Respiratory: reports: No Symptoms Gastrointestinal: reports: No Symptoms Musculoskeletal: reports: Other (See HPI) Integumentary: reports: No Symptoms Neurological: reports: No Symptoms Physical Exam Vital Signs: Vital Signs Temperature 97.8 F 09/23/18 14:55 Pulse Rate 80 09/23/18 14:55 Respiratory Rate 20 09/23/18 14:55 Blood Pressure 116/67 09/23/18 14:55 O2 Sat by Pulse Oximetry (%) 98 09/23/18 09:00 Constitutional: Yes: Mild Distress Eyes: Yes: WNL HENT: Yes: WNL Neck: Yes: WNL Cardiovascular: Yes: WNL Respiratory: Yes: WNL Gastrointestinal: Yes: WNL Musculoskeletal: Yes: Other (Mild non-pitting edema of the right leg and tenderness in the right calf with questionable Hommans sign. No active joints.) Labs: CBC, BMP 09/23/18 06:50 09/23/18 06:50 Laboratory Tests 09/21/18 09/21/18 09/22/18 21:35 21:35 19:00 ESR 17 Uric Acid 7.2 Calcium Magnesium Total Bilirubin AST ALT Alkaline Phosphatase C-Reactive Protein 1.2 H Total Protein Albumin Urine Color Straw Urine Appearance Clear Urine pH 7.0 Ur Specific Fleming 1.014 Urine Protein Negative Urine Glucose (UA) Negative Urine Ketones Negative Urine Blood Negative Urine Nitrite Negative Urine Bilirubin Negative Urine Urobilinogen Negative Ur Leukocyte Esterase Negative 09/23/18 06:50 ESR Uric Acid Calcium 8.8 Magnesium 2.4 Total Bilirubin 0.4 AST 18 ALT 20 Alkaline Phosphatase 103 C-Reactive Protein Total Protein 6.7 Albumin 3.4 Urine Color Urine Appearance Urine pH Ur Specific Fleming Urine Protein Urine Glucose (UA) Urine Ketones Urine Blood Urine Nitrite Urine Bilirubin Urine Urobilinogen Ur Leukocyte Esterase Problem List - Problems (1) Gout Assessment/Plan: Intercrytical gout. Code(s): M10.9 - GOUT, UNSPECIFIED (2) Right calf pain Assessment/Plan: Pain in right calf, etiology to be determined. He does not have DVT, there was no Laughlin cyst on the US and the right knee is not tender or swollen. The arterial fllow has abnormal waves with no stenosis, etiology to be determined, again probably not related to the pain. Plan: consider vascular consult. Code(s): M79.661 - PAIN IN RIGHT LOWER LEG
== END 2018-09-23 16:39 | disposition home or self-care (01) | DRG 383 ==
LOC: JER 16:18 → JERBED 21:22 → OBSVTOIN 21:43 → J5S 09-22 13:48
PROVIDERS: ADMIT Family Medicine; ATTEND Family Medicine
DX: L03.115 Cellulitis of right lower limb (principal); L02.415 Cutaneous abscess of right lower limb; I10 Essential (primary) hypertension; E78.5 Hyperlipidemia, unspecified; M10.9 Gout, unspecified; E83.42 Hypomagnesemia; N40.0 Benign prostatic hyperplasia without lower urinary tract symptoms; M79.661 Pain in right lower leg; Z87.442 Personal history of urinary calculi
CPT/HCPCS: 36415; 71046-TC-FY; 73590-TC-RT-FY; 73610-TC-RT-FY; 80048; 80053; 81003; 83605; 83735; 83880; 84550; 85025; 85027; 85651; 86140; 87040; 93005; 93010; 93926-TC; 93971-TC; 99284-25; G0378; J1644

== ENCOUNTER 2020-11-15 07:21 | Day surgery (SDC) | payer OTHER ==
[2020-11-15 07:48] VITALS: BMI 43.9
[2020-11-15] MEDS ORDERED: MIDAZOLAM HCL 2 MG/2 ML SINGLE DOSE VIAL ONE (08:32)
[2020-11-15] MEDS ORDERED: ONDANSETRON 4 MG/2 ML VIAL ONE (09:09)
[2020-11-15] MEDS ORDERED: DEXAMETHASONE SOD PHOSPHATE 4 MG/1 ML VIAL ONE (09:09)
[2020-11-15 09:48] VITALS: TEMP 97.3
[2020-11-15 10:02] VITALS: BP 111/58; PULSE 65
== END 2020-11-15 10:06 | disposition home or self-care (01) ==
LOC: FASU 07:21
PROVIDERS: ATTEND Orthopaedic Surgery Hand Surgery
PROC: 0LN70ZZ Release Right Hand Tendon, Open Approach (ICD-10-PCS; principal; 2020-11-15 09:17)
DX: M65.311 Trigger thumb, right thumb (principal)

== ENCOUNTER 2024-11-04 15:02 | Observation (INO) | payer OTHER ==
[2024-11-04] MEDS ORDERED: ACETAMINOPHEN 1000 MG/100 ML BAG IVPB PRN (15:57)
[2024-11-04] MEDS ORDERED: ALPRAZolam 1 MG TABLET PO PRN (15:57)
[2024-11-04 16:16] LABS: HEMATOCRIT 38.6 % (40.1-51.0); HEMOGLOBIN 13.1 g/dL (13.7-17.5); MCHC 33.9 g/dl (32.3-36.5); MEAN CELL VOLUME 83.2 fl (79.0-92.2); MEAN PLT VOLUME 9.7 fl (9.4-12.4); PLATELET COUNT 306 x10^3/uL (163-337); RDW 13.1 % (12.2-16.4)
[2024-11-04] MEDS ORDERED: ONDANSETRON 4 MG/2 ML VIAL ONE (16:27)
[2024-11-04] MEDS ORDERED: FAMOTIDINE 20 MG/50 ML IVPB 20 MG/50 ML MG IVPB ONE (16:27)
[2024-11-04 16:49] LABS: POTASSIUM 3.3 mmol/L (3.5-5.1)
[2024-11-04] MEDS ORDERED: morphine SULFATE 4 MG/ML VIAL ONE (16:49)
[2024-11-04 16:50] LABS: CALCIUM 8.8 mg/dL (8.5-10.1)
[2024-11-04 16:51] LABS: ALBUMIN 3.1 g/dl (3.4-5.0); BLOOD UREA NITROGEN 12.5 mg/dL (7-18)
[2024-11-04 16:52] LABS: MAGNESIUM 1.8 mg/dL (1.8-2.4)
[2024-11-04 16:54] LABS: CREATININE 1.1 mg/dL (0.55-1.3)
[2024-11-04 16:56] LABS: BILIRUBIN,TOTAL 0.6 mg/dL (0.2-1); TOT PROT 6.7 g/dl (6.4-8.2)
[2024-11-04] MEDS: ONDANSETRON 4 MG/2 ML VIAL IVPUSH ONE (17:21)
[2024-11-04] MEDS: morphine SULFATE 4 MG/ML VIAL IM PRN (17:21)
[2024-11-04] MEDS: FAMOTIDINE 20 MG/50 ML IVPB 20 MG/50 ML MG IVPB ONE (17:21)
[2024-11-04 20:06] VITALS: BMI 31.3
[2024-11-05] MEDS: D5-NS + 40 MEQ KCL - 40 MEQ/1,000 ML INFUS.BAG IV SCH (04:00)
[2024-11-05] MEDS: PANTOPRAZOLE SODIUM 40 MG VIAL IVPUSH SCH (09:52)
[2024-11-05] MEDS: LOSARTAN 50MG/HCTZ 12.5MG 1 TAB PO SCH (09:52)
[2024-11-05] MEDS: POTASSIUM CHLORIDE ORAL LIQUID 20 MEQ/15 ML PO ONE (17:37)
[2024-11-06 07:54] LABS: HEMATOCRIT 38.1 % (40.1-51.0); HEMOGLOBIN 12.5 g/dL (13.7-17.5); MCHC 32.8 g/dl (32.3-36.5); PLATELET COUNT 280 x10^3/uL (163-337); RDW 13.2 % (12.2-16.4)
[2024-11-06 08:01] LABS: POTASSIUM 4.1 mmol/L (3.5-5.1)
[2024-11-06 08:06] LABS: ALBUMIN 2.8 g/dl (3.4-5.0); BLOOD UREA NITROGEN 15.2 mg/dL (7-18); CALCIUM 8.8 mg/dL (8.5-10.1)
[2024-11-06 08:07] LABS: MAGNESIUM 1.9 mg/dL (1.8-2.4)
[2024-11-06 08:10] LABS: BILIRUBIN,TOTAL 0.4 mg/dL (0.2-1); CREATININE 1.2 mg/dL (0.55-1.3); TOT PROT 6.2 g/dl (6.4-8.2)
[2024-11-06] MEDS: SIMETHICONE 80 MG TAB.CHEW (FP) PO PRN (10:58)
[2024-11-06] MEDS ORDERED: metroNIDAZOLE 250 MG TABLET PO SCH (14:00)
[2024-11-06] MEDS: ACETAMINOPHEN 325 MG TABLET (FP) PO PRN (15:04)
[2024-11-06] MEDS: metroNIDAZOLE 250 MG TABLET PO SCH (15:05)
[2024-11-06] MEDS: MELATONIN 5 MG TABLETS PO PRN (21:57)
[2024-11-06] MEDS: LACTATED RINGERS SOLUTION 1,000 ML/1,000 ML INFUS.BAG IV SCH (22:54)
[2024-11-07] MEDS: BISACODYL 10 MG SUPP.RECT PR ONE (10:00)
[2024-11-07 12:24] LABS: ABSOLUTE IMMATURE GRANULOCYTES 0.11 x10^3/uL (0.0-0.031); BASOPHILS # 0.04 x10^3/uL (0.01-0.08); EOSINOPHIL % 0.5 % (0.8-7.0); EOSINOPHILS # 0.07 x10^3/uL (0.04-0.54); HEMATOCRIT 37.4 % (40.1-51.0); HEMOGLOBIN 12.2 g/dL (13.7-17.5); MCHC 32.6 g/dl (32.3-36.5); MEAN CELL VOLUME 85.4 fl (79.0-92.2); MONOCYTE # 1.29 x10^3/uL (0.30-0.82); MONOCYTE % 9.2 % (5.3-12.2); PLATELET COUNT 256 x10^3/uL (163-337); RDW 13.4 % (12.2-16.4)
[2024-11-07 12:47] LABS: POTASSIUM 3.6 mmol/L (3.5-5.1)
[2024-11-07 12:50] LABS: ALBUMIN 2.8 g/dl (3.4-5.0); BLOOD UREA NITROGEN 11.5 mg/dL (7-18); CALCIUM 8.5 mg/dL (8.5-10.1)
[2024-11-07 12:53] LABS: CREATININE 0.9 mg/dL (0.55-1.3)
[2024-11-07 12:54] LABS: BILIRUBIN,TOTAL 0.8 mg/dL (0.2-1); TOT PROT 6.1 g/dl (6.4-8.2)
[2024-11-07] MEDS: ONDANSETRON 4 MG/2 ML VIAL IVPUSH PRN (14:56)
[2024-11-07 15:40] LABS: ABSOLUTE IMMATURE GRANULOCYTES 0.08 x10^3/uL (0.0-0.031); BASOPHILS # 0.06 x10^3/uL (0.01-0.08); EOSINOPHIL % 0.5 % (0.8-7.0); EOSINOPHILS # 0.07 x10^3/uL (0.04-0.54); HEMATOCRIT 39.2 % (40.1-51.0); HEMOGLOBIN 12.7 g/dL (13.7-17.5); MCHC 32.4 g/dl (32.3-36.5); MEAN CELL VOLUME 84.3 fl (79.0-92.2); MEAN PLT VOLUME 9.7 fl (9.4-12.4); MONOCYTE # 1.44 x10^3/uL (0.30-0.82); MONOCYTE % 9.3 % (5.3-12.2); PLATELET COUNT 273 x10^3/uL (163-337); RDW 13.4 % (12.2-16.4)
[2024-11-07 15:57] LABS: PH,URINE 5.5 (5.0-8.0); URINE APPEARANCE CLEAR; URINE BILIRUBIN NEGATIVE (NEGATIVE); URINE COLOR YELLOW; URINE GLUCOSE (UA) NEGATIVE (NEGATIVE); URINE KETONE NEGATIVE (NEGATIVE); URINE LEUK ESTERASE NEGATIVE (NEGATIVE); URINE NITRITE NEGATIVE (NEGATIVE); URINE PROTEIN TRACE (NEGATIVE); URINE UROBILINOGEN 0.2 mg/dL (0.2-1.0)
[2024-11-07] MEDS: POTASSIUM CHLORIDE ORAL LIQUID 20 MEQ/15 ML PO ONE (17:45)
[2024-11-08 07:33] LABS: ABSOLUTE IMMATURE GRANULOCYTES 0.12 x10^3/uL (0.0-0.031); BASOPHILS # 0.04 x10^3/uL (0.01-0.08); EOSINOPHIL % 0.6 % (0.8-7.0); EOSINOPHILS # 0.08 x10^3/uL (0.04-0.54); HEMOGLOBIN 11.7 g/dL (13.7-17.5); MCHC 32.5 g/dl (32.3-36.5); MEAN CELL VOLUME 85.3 fl (79.0-92.2); MONOCYTE % 9.8 % (5.3-12.2); PLATELET COUNT 209 x10^3/uL (163-337); RDW 13.6 % (12.2-16.4)
[2024-11-08 07:52] LABS: POTASSIUM 3.8 mmol/L (3.5-5.1)
[2024-11-08 07:54] LABS: ALBUMIN 2.4 g/dl (3.4-5.0); CALCIUM 8.3 mg/dL (8.5-10.1)
[2024-11-08 07:55] LABS: BLOOD UREA NITROGEN 9.8 mg/dL (7-18)
[2024-11-08 07:58] LABS: CREATININE 0.9 mg/dL (0.55-1.3)
[2024-11-08 07:59] LABS: BILIRUBIN,TOTAL 0.7 mg/dL (0.2-1); TOT PROT 5.6 g/dl (6.4-8.2)
[2024-11-08] MEDS ORDERED: FENTANYL CITRATE/PF 50 MCG/ML VIAL ONE (11:39)
[2024-11-08] MEDS ORDERED: MIDAZOLAM HCL 2 MG/2 ML SINGLE DOSE VIAL ONE (11:39)
[2024-11-08] MEDS: FENTANYL CITRATE/PF 50 MCG/ML VIAL IVPUSH ONE (11:52)
[2024-11-08] MEDS: MIDAZOLAM HCL 2 MG/2 ML SINGLE DOSE VIAL IVPUSH ONE ×2 (11:52→11:57)
[2024-11-08] MEDS: SODIUM CHLORIDE 500 ML IV ONE (14:41)
[2024-11-08] MEDS: ATORVASTATIN CA 40 MG TABLET (FP) PO SCH (21:31)
[2024-11-09 07:38] LABS: HEMATOCRIT 35.2 % (40.1-51.0); HEMOGLOBIN 11.6 g/dL (13.7-17.5); MEAN CELL VOLUME 85.6 fl (79.0-92.2); PLATELET COUNT 229 x10^3/uL (163-337); RDW 13.6 % (12.2-16.4)
[2024-11-09 08:07] LABS: POTASSIUM 3.4 mmol/L (3.5-5.1)
[2024-11-09 08:19] LABS: ALBUMIN 2.4 g/dl (3.4-5.0); BLOOD UREA NITROGEN 12.7 mg/dL (7-18)
[2024-11-09 08:21] LABS: CALCIUM 8.8 mg/dL (8.5-10.1)
[2024-11-09 08:22] LABS: MAGNESIUM 1.8 mg/dL (1.8-2.4)
[2024-11-09 08:23] LABS: CREATININE 0.9 mg/dL (0.55-1.3)
[2024-11-09 08:26] LABS: BILIRUBIN,TOTAL 0.7 mg/dL (0.2-1); TOT PROT 5.7 g/dl (6.4-8.2)
[2024-11-09] MEDS: MAGNESIUM HYDROX 2400MG/30ML ORAL SUSPENSION 30 ML CUP PO PRN (10:22)
[2024-11-09] MEDS: BISACODYL 5 MG TABLET.DR (FP) PO PRN (10:22)
[2024-11-09] MEDS: POLYETHYLENE GLYCOL (HEALTHYLAX) 3350 17 GM PACKET PO SCH (10:22)
[2024-11-09] MEDS: POTASSIUM CHLORIDE ORAL LIQUID 20 MEQ/15 ML PO ONE (10:30)
[2024-11-09 21:17] VITALS: BP 115/66; PULSE 114; RESP 21; TEMP 97.9
== END 2024-11-09 21:26 | disposition short-term general hospital (02) ==
LOC: JER 15:02 → INTOOBSV 15:55 → UNDOADMOB 15:55 → JERBED 15:55 → J7W 19:44 → JERBED 11-05 11:43 → J7W 11-05 20:20
PROVIDERS: ADMIT Family Medicine; ATTEND Family Medicine
PROC: 0FD Hepatobiliary System and Pancreas, Extraction (ICD-10-PCS; 2024-11-05)
PROC: BF45ZZZ Ultrasonography of Liver (ICD-10-PCS; 2024-11-05)
PROC: 3E033GC Introduction of Other Therapeutic Substance into Peripheral Vein, Percutaneous Approach (ICD-10-PCS; 2024-11-05)
PROC: 3E033NZ Introduction of Analgesics, Hypnotics, Sedatives into Peripheral Vein, Percutaneous Approach (ICD-10-PCS; 2024-11-05)
PROC: 3E0337Z Introduction of Electrolytic and Water Balance Substance into Peripheral Vein, Percutaneous Approach (ICD-10-PCS; 2024-11-05)
PROC: 3E023NZ Introduction of Analgesics, Hypnotics, Sedatives into Muscle, Percutaneous Approach (ICD-10-PCS; 2024-11-05)
PROC: 3E033NZ Introduction of Analgesics, Hypnotics, Sedatives into Peripheral Vein, Percutaneous Approach (ICD-10-PCS; 2024-11-05)
PROC: 0FD13ZX Extraction of Right Lobe Liver, Percutaneous Approach, Diagnostic (ICD-10-PCS; principal; 2024-11-05 13:30)
DX: C25.2 Malignant neoplasm of tail of pancreas (principal); C78.7 Secondary malignant neoplasm of liver and intrahepatic bile duct; C79.00 Secondary malignant neoplasm of unspecified kidney and renal pelvis; E78.5 Hyperlipidemia, unspecified; N40.0 Benign prostatic hyperplasia without lower urinary tract symptoms; E88.2 Lipomatosis, not elsewhere classified; R16.0 Hepatomegaly, not elsewhere classified; M10.9 Gout, unspecified; I10 Essential (primary) hypertension; N20.0 Calculus of kidney; R10.13 Epigastric pain
CPT/HCPCS: 10005; 10006; 36415; 47000; 71045-TC-FY; 71250-TC; 74019-TC-FY; 74182-TC; 76942-TC; 80053; 81003; 82150; 83690; 83735; 84443; 84484; 85025; 85027; 87040; 87086; 88305-TC; 88307-TC; 88341-TC; 88342-TC; 93005; 93010; 93306-TC; 96361; 96365; 96372; 96375; 99285-25; G0378